=== PATIENT | male | born 1975 | race Caucasian/White ===

== ENCOUNTER 2016-07-31 08:29 | Emergency (ER) | payer MEDICAID ==
[~2016-07-31] VITALS: Ht 170.2 cm; Wt 68.0 kg
[2016-07-31 08:33] VITALS: Ht 170.2 cm; Wt 68.0 kg
[2016-07-31] MEDS ORDERED: ALBUTEROL 0.5% (NEB) 2.5 MG/0.5 ML AMP HHN STA (08:45)
[2016-07-31] MEDS ORDERED: predniSONE 20 MG TAB PO ONE (09:00)
[2016-07-31] MEDS ORDERED: IPRATROPIUM (NEB) 0.5 MG/2.5 ML AMP HHN ONE (09:00)
--- NOTE | 2016-07-31 09:42 | RADRPT ---
PROCEDURE: XR Chest. CLINICAL INDICATION: chest pain TECHNIQUE: Single frontal view of the chest was obtained COMPARISON: None FINDINGS: The heart and mediastinum are within normal limits. The lungs are clear. There is no pleural effusion or pneumothorax. RPTAT: AA IMPRESSION: No acute disease. .Mo Reich MD, Date Time Electronically viewed and signed by .Mo Reich MD, on 07/31/2016 09:42 .S/
[2016-07-31] MEDS ORDERED: PRED20TA PO (09:54)
[2016-07-31] MEDS ORDERED: ALBU18HF INHALATION (09:54)
--- NOTE | 2016-07-31 09:56 | ERD ---
ER Documentation Chief Complaint Date/Time DATE: 07/31/16 TIME: 09:56 Chief Complaint MID CHEST PAIN AND SHORTNESS OF BREATH STARTED YESTERDAY HPI Patient is a 41-year-old male with hypertension who presents with "bronchitis". He said the symptoms started yesterday. He felt worse today. He had a dry cough. He has had this in the past and it feels similar. He has no fevers. He had mild chest pain. He had no leg swelling. He has had no recent travel. He has had no treatment as of yet. Upon review of old medical records this is the patient's first visit to the ER. ROS All systems reviewed and are negative except as per history of present illness. Medications Home Meds Active Scripts Prednisone* (Prednisone*) 20 Mg Tab, 60 MG PO DAILY for 4 Days, TAB Prov:JENNIFER COOPER MD 07/31/16 Albuterol Sulfate* (Ventolin HFA*) 18 Gm Hfa.aer.ad, 2 PUFF INHALATION Q4H, #1 INHALER Prov:JENNIFER COOPER MD 07/31/16 Allergies Allergies: Coded Allergies: No Known Allergy (Unverified , 07/31/16) PMhx/Soc Medical and Surgical Hx: pt denies Medical Hx, pt denies Surgical Hx Hx Alcohol Use: No Hx Substance Use: No Hx Tobacco Use: No Smoking Status: Never smoker FmHx Family History: No coronary disease Physical Exam Vitals Vital Signs Date Time Temp Pulse Resp B/P Pulse Ox O2 Delivery O2 Flow Rate FiO2 07/31/16 09:18 82 20 97 21 07/31/16 08:33 98.0 120 26 121/83 97 Physical Exam Const: No acute distress Head: Atraumatic Eyes: Normal Conjunctiva ENT: Normal External Ears, Nose and Mouth. Neck: Full range of motion..~ No meningismus. Resp: Expiratory wheezing without retractions or accessory muscle use Cardio: Regular rate and rhythm, no murmurs Abd: Soft, non tender, non distended. Normal bowel sounds Skin: No petechiae or rashes Back: No midline or flank tenderness Ext: No cyanosis, or edema Neur: Awake and alert Psych: Normal Mood and Affect Results 24 hrs Current Medications Medications (Trade) Dose Ordered Sig/Francis Route PRN Reason Start Time Stop Time Status Last Admin Dose Admin Albuterol (Proventil 0.5% (Neb)) 5 mg ONCE STAT HHN 07/31/16 08:45 07/31/16 08:47 DC 07/31/16 09:17 Ipratropium [place] (Atrovent 0.02% (Neb)) 0.5 mg ONCE ONCE HHN 07/31/16 09:00 07/31/16 09:01 DC 07/31/16 09:17 Prednisone (Prednisone) 60 mg ONCE ONCE PO 07/31/16 09:00 07/31/16 09:01 DC 07/31/16 08:57 Procedures/[facility] EKG read by me: Rate/Rhythm: Sinus tachycardia at a rate of 105 Intervals: Normal Impression: Tachycardia without evidence of ischemia Chest x-ray negative per radiology. Patient is a 41-year-old male presents with cough and wheezing. The patient was given albuterol, Atrovent, and prednisone. EKG shows sinus tachycardia but no signs of ischemia. Chest x-ray shows no pneumonia or pneumothorax. At this point I doubt acute coronary syndrome, pneumonia, pneumothorax, pulmonary embolism, or aortic dissection. I will treat the patient is a presumed acute bronchitis but I do not believe he requires antibiotics. Patient will be given albuterol inhaler and prednisone for 4 more days. The patient could return for any worsening symptoms. He should follow-up with the local clinics within 24- 48 hours for reevaluation. Departure Diagnosis: Primary Impression: Bronchitis Additional Impression: Chest pain Chest pain type: unspecified Qualified Code: R07.9 - Chest pain, unspecified type Condition: Fair Patient Instructions: Bronchitis, No Antibiotic (Adult), Chest Pain, Uncertain Cause [facility]: [facility] Usted se mcarthur hecho un examen mdico de control que le indica que no est en fermín condicin que requiera tratamiento urgente en el Departamento de Emergencia. Un estudio ms profundo y el tratamiento de davies condicin pueden esperar sin ningn riesgo hasta que usted sea atendida/o en el consultorio de davies mdico o fermín cl angelika. Es responsabilidad suya arreglar fermín alivia para el seguimiento del tess. MANEJO DE CONDICIONES NO URGENTES EN EL FUTURO 1) Si usted tiene un mdico de atencin primaria: Usted debera llamar a davies mdico de atencin primaria antes de venir al departamento de emergencia. Despus de las horas de consultorio, davies doctor o davies asociado/a est disponible por telfono. El mdico o enfermero de salome en el servicio telefnico puede asesorarle por bubba medio para atender el problema, o tess contrario se puede programar fermín alivai. 2) Si usted no tiene un mdico de atencin primaria: Llame al mdico o clnica de referencia que aparece abajo maria isabel las horas de consultorio para hacer fermín alivia para que le vean. CLINICAS: [facility] [phone] [facility] [facility] [address] [phone] [facility] [phone] [facility] [place] [id number] [phone] [facility] [place] [id number] [phone] [place] [id number] [phone] Additional Instructions: Llame al doctor MAANA y kyung fermín ALIVIA PARA DENTRO DE 1-2 SONG.Dgale a la secretaria que nosotros le instruimos hacer esta alivia.Avise o llame si davies condicin se empeora antes de la alivia. Regresa aqui si peor o no mejor. JENNIFER COOPER MD Jul 31, 2016 09:56
[2016-07-31 10:15] VITALS: BP 118/82; PULSE 77; RESP 18; TEMP 98
== END 2016-07-31 10:15 | disposition home or self-care (01) ==
LOC: E/R 08:29
DX: J40 Bronchitis, not specified as acute or chronic (principal); R40.2142 Coma scale, eyes open, spontaneous, at arrival to emergency department; R40.2252 Coma scale, best verbal response, oriented, at arrival to emergency department; R40.2362 Coma scale, best motor response, obeys commands, at arrival to emergency department
CPT/HCPCS: 71010; 93005; 94664; J7512; Z7502; Z7610

== ENCOUNTER 2017-07-31 08:45 | Emergency (ER) | END 2017-07-31 11:02 | disposition home or self-care (01) ==